=== PATIENT | female | born 1950 ===

== ENCOUNTER 2018-12-08 06:30 | Day surgery (SDC) | payer OTHER ==
[~2018-12-08 06:30] MED LIST: CALTRATE 600600 MG PO; GABAPENTIN100 MG PO; LEVAQUIN250 MG/10 PO; PNEU16DI2; PRILOSEC20 MG PO; ULTRACET PO; ZOLOFT25 MG PO; [UNRECOGNIZED DRUG - OTHER] PO
[2018-12-08] MEDS ORDERED: KEFLEX250 MG PO (10:38)
[2018-12-08] MEDS ORDERED: ULTRACET PO (10:39)
== END 2018-12-08 10:55 | disposition home or self-care (01) ==
LOC: CIR.AMB 06:30
DX: R15.9 Full incontinence of feces (principal)
CPT/HCPCS: 64590; C1767